=== PATIENT | male | born 1985 | race Caucasian/White ===

== ENCOUNTER → 2018-06-15 | Outpatient (CLI) | payer OTHER ==
--- NOTE | 2018-06-15 16:54 | RAD ---
Sonography of the pectoral region of the chest Clinical indications: History of right breast or right chest wall lump. FINDINGS: High-resolution sonography of the area of the palpable lump as indicated by the patient on the right side of the chest was performed. No focal sonographic abnormality is evident. The same area of the left side of the chest was evaluated for comparison and there is no asymmetry. IMPRESSION: Unremarkable study. With regard to any palpable lump, follow-up should be clinical therefore. Electronically signed by: Tino Poole MD (06/15/2018 4:50 PM) [facility]
== END | disposition home or self-care (01) ==
LOC: US 12:32
PROVIDERS: ATTEND Nurse Practitioner Family
DX: R59.0 Localized enlarged lymph nodes (principal)
CPT/HCPCS: 76882